=== PATIENT | female | born 1940 | race Caucasian/White ===

== ENCOUNTER 2022-06-25 10:30 | Outpatient (RCR) | payer MEDICARE, BC, SELFPAY ==
--- NOTE | 2022-05-26 09:57 | HP.PTEVAL_ITS ---
Patient's Visit Information MANGO GUERIN is a 81 year old F referred to Physical Therapy by Dr. Alexandra Eucdea MD with a diagnosis of TRAPEZIUS M. SPASM AND KYPHOSIS, AQUIRED. Date of Evaluation: 05/26/22 Physical Therapist: Haley Felix, PT, Cert MDT - Visit Plan Frequency: 2-3x /Week Duration: 4-6 Weeks Plan: GENTLE POSTURE CORRECTION/STRENGTHENING, INSTRUCTION IN APPROPRIATE BODY MECHANICS AND ACTIVITY MODIFICATIONS. GENTLE DULCE UE ROM, STRETCHING AND STRENGTHENING. US AND [facility] NEEDED. HEP INSTRUCTION. - Subjective Work/Leisure: RETIRED. Present symptoms: NECK PAIN. DULCE SHLD PAIN R>L. HEAVY FEELING IN THE NECK AND SHLD'S. PATIENT DENIES DULCE UE NUMBNESS AND TINGLING. Present since: 2005. Pain Scale: Worst - 6/10 Least - 1-210. Currently: - 08/08. Commenced as a result of: FALL ON ICE - HIT HEAD, NECK AND SHLD. Sy mptoms at onset: TINGLING FROM NECK UP TO TOP OF HEAD. Worse: TRYING TO HOLD HEAD UP, REACHING, LOOKING UP. ROLLING FROM LEFT TO RIGHT. RIGHT SDLY. Better: NOT LOOKING UP - WITH HEAD MORE DOWN. Disturbed sleep: YES. Previous history/Previous treatment: MASSAGE. H/O R FROZEN SHLD AND ROTATOR CUFF PROBLEM - TRIED PT AND IT MADE IT WORSE. NO NECK OR SHLD SURGERY. This episode: PT CONSULT. Dizziness: SOMETIMES - PATIENT RELATES IT TO HER HIGH BLOOD PRESSURE. ON MED'S. Tinnitis: ONCE IN A WHILE - NOT COMMON AND NOT NEW. Nausea: NO. Shortness of Breath: NO. Difficulty Swollowing: NO. Gait: H/O L ANKLE FX AND L TOES ARE NUMB. FOOT SWELLS AND MAKES WALKING UNCOMFORTABLE. NO AD'S. NO RECENT FALLS. Accidents: NO. Unexplained weight loss: NO. Imaging: NONE RECENT. PMH/Recent major surgery: HTN, HIGH CHOLESTEROL. H/O L ANKLE ORIF 2008. - Objective Sitting Posture/Standing Posture: INCREASED KYPHOSIS. FH. RSH'S. NO TORTICOLLIS. Active Correction of posture: NE. ONLY ABLE TO PARTIALLY CORRECT. PATIENT HAS MAJOR CERVICAL EXTENSION MVMT LOSS AND STRUGGLES TO KEEP EYES HORIZONTAL WITH THE GROUND. SHE REPORTS THAT THE MORE SHE TRIES TO HOLD HER HEAD UP THE MORE IT HURTS. Other Observations: INDEP GAIT AND TRANSFERS. Sensory deficit: DULCE UE LIGHT TOUCH SENSATION GROSSLY INTACT AND SYMMETRICAL. ROM deficit: DECREASED DULCE SHLD SHLD ROM: ELEVATION - RIGHT 130 DEG, LEFT 125 DEG. DULCE UE ELBOW, FOREARM, WRIST AND HAND ROM WFL. NO PAIN ELEVATING ARMS BUT RIGHT SHLE ACHES WITH PROLONGED REACHING LIKE TO DO HAIR. Motor deficit: RIGHT HAND DOMINANT WITH A R RIDES ATTENDANT 25 LBS, L 15 LBS. DULCE UE STRENGTH GROSSLY 4/5 WITH MMT'ING AND PATIENT DENIES PAIN WITH TESTING. Dural Signs: NEGATIVE DLUCE UE'S. Cervical Mvmt Loss: Flex: NIL. Pro: NIL. Ext: YASIR. Ret: YASIR. RSB: MOD. LSB: MOD. R Rot: MOD. L Rot: MOD. Postural strength: POOR. Palpation: NO ACUTE TENDERNESS WITH PALPATION OF NECK OR DULCE SHLD REGIONS BUT DULCE UT'S ARE VERY TIGHT. TREATMENT: NEUROMUSCULAR REEDUCATION - INTRO TO RETRAINING OF MVMT AND POSTURE FOR SITTING, LYING AND STANDING ACTIVITIES. - Balance/Special Test Scores Oswestry Neck Score: 11 - Goals Goal 1:: DECREASE C/O HEAD, NECK AND SHLD PAIN Goal Time Frame: 4-6 Weeks Goal 2:: IMPROVE LIFTING, REACHING, RADING, SLEEP, HOUSEWORK AND RECREATIONAL FUNCTION Goal Time Frame: 4-6 Weeks Goal 3:: INSTRUCT IN PROPHYLAXIS Goal Time Frame: 4-6 Weeks - Anticipated Interventions Patient/Client Instruction: Educate patient on: Condition, Plan of Care, Risk Factors For the Purpose of:: To improve self management Therapeutic Exercise to Include: Strength training, Body mechanics, Postural training, Flexibilty training, Neuromotor development, Scapular Strength/Stabilization For the Purpose of:: To decrease pain, To increase ROM, To improve muscle performance and motor function, To increase tolerance to activity/condition/position, To improve ability of physical actions for home/community/work/leisure Manual Therapy Techniques to Include: Soft tissue mobilization For the Purpose of:: To decrease pain, To improve nutrient delivery to tissue Cryotherapy (ice pack, ice massage): Yes Thermo therapy (hot pack): Yes Ultrasound (thermal/non thermal): Yes For the Purpose of:: To decrease pain, To improve nutrient delivery to tissue Thank you for the opportunity to evaluate your patient. For Medicare and Medicare HMO plans, please review the plan of care and approve it. It will need to be FAXED BACK to us at [phone] for Medicare purposes. For Medicare only, by signing this I certify the plan of care. Please let me know if there are questions or concerns regarding this plan of car e. Physician Signature: Date:
--- NOTE | 2022-06-25 11:01 | HP.PTDCSUM_ITS ---
It has been my pleasure to treat MANGO GUERIN referred by Dr. Alexandra Euceda MD, with the diagnosis of TRAPEZIUS M. SPASM AND KYPHOSIS, AQUIRED for a total of 10 visit(s). Discharge Date: Please see the following information for a summary of their discharge status. Subjective: LOOKING SIDE TO SIDE IS BETTER. LOOKING RIGHT AND LEFT DRIVING IS EASIER. STILL HAVING TROUBLE LOOKING UP AND PROLONGED LOOKING UP CAUSES A HEADACHE. PATIENT REPORTS THERAPY HAS HELPED A LOT AND SHE IS DOING HER HOME EX PROGRAM. USING HEAT ON NECK AT HOME HELPS PAIN TOO. PATIENT REPORTS SHE WOULD LIKE TO TRY TO CONTINUE THERAPY ON HER OWN AT THIS POINT AND WILL FOLLOW UP WITH HER PCP NEEDED. neck Pain Intensity (Out of 10): Unrated % Improvement: 75 Objective/Function: PATIENT WAS SEEN TODAY FOR RE-ASSESSMENT OF PROGRESS TOWARD THE SET PT GOALS AND THE NEED FOR FURTHER PHYSICAL THERAPY VS READINESS FOR DISCHARGE. UPON EXAM TODAY: ROM deficit: DULCE SHLD ELEVATION HAS IMPROVED - RIGHT 145 DEG, LEFT 145 DEG. DULCE UE ELBOW, FOREARM, WRIST AND HAND ROM WFL. Motor deficit: RIGHT HAND DOMINANT WITH A R HUMAN RESOURCES CONSULTANT 40 LBS, L 20 LBS. DULCE HUMAN RESOURCES CONSULTANT STRENGTH HAS IMRPOVED. DULCE UE STRENGTH GROSSLY 4/5 WITH MMT'ING AND PATIENT DENIES PAIN WITH TESTING. Dural Signs: NEGATIVE DULCE UE'S. Cervical Mvmt Loss: Flex: NIL. Pro: NIL. Ext: YASIR. Ret: YASIR. RSB: MOD. LSB: MOD. R Rot: MOD. L Rot: MOD. CERVICAL ROM IS UNCHANGED OVER-ALL BUT PATIENT REPORTS BEING ABLE TO TURN HER HEAD SIDE TO SIDE BETTER DURING ACTIVITIES LIKE DRIVING. Goal 1:: DECREASE C/O HEAD, NECK AND SHLD PAIN Goal Progress: Progressing Goal 2:: IMPROVE LIFTING, REACHING, RADING, SLEEP, HOUSEWORK AND RECREATIONAL FUNCTION Goal Progress: Progressing Goal 3:: INSTRUCT IN PROPHYLAXIS Goal Progress: Progressing Plan: D/C TO [facility] AND PHYSICIAN FOLLOW UP NEEDED. If there are questions or concerns regarding this patient's physical therapy, please feel free to call me at [phone]. Thank you for the referral of this patient. Sincerely, Haley Felix, PT, Cert MDT Balance/Gait/Functional tests - Balance/Special Test Scores Oswestry Neck Score: 6
== END 2022-06-25 12:53 | disposition home or self-care (01) ==
LOC: PT 10:30
PROVIDERS: PCP Internal Medicine; Referring Provider Internal Medicine; Visit Provider Internal Medicine
DX: M40.209 Unspecified kyphosis, site unspecified (principal); M62.838 Other muscle spasm
CPT/HCPCS: 97035; 97110; 97112; 97140; 97162; 97164; 97530

== ENCOUNTER 2022-10-01 12:00 | Outpatient (RCR) | payer MEDICARE, BC, SELFPAY ==
--- NOTE | 2022-09-01 14:57 | HP.PTEVAL_ITS ---
Patient's Visit Information MANGO GUERIN is a 81 year old F referred to Physical Therapy by Dr. Alexandra Euceda MD with a diagnosis of L NECK PAIN, TRAPEZIUS M. SPASM AND KYPHOSIS. Date of Evaluation: 09/01/22 Physical Therapist: Haley Felix, PT, Cert MDT - Visit Plan Frequency: 2x /Week Duration: 4-6 Weeks Plan: CERVICAL US AND STM. HEP REVIEW AND REINSTRUCTION NEEDED. GENTLE POSTURE CORRECTION/STRENGTHENING, INSTRUCTION IN APPROPRIATE BODY MECHANICS AND ACTIVITY MODIFICATIONS. GENTLE DULCE UE ROM, STRETCHING AND STRENGTHENING. FURTHER HEP INSTRUCTION NEEDED/APPROPRIATE. - Subjective Work/Leisure: RETIRED. Present symptoms: NECK PAIN. DULCE SHLD PAIN R>L. HEAVY FEELING IN THE NECK AND SHLD'S. PATIENT DENIES DULCE UE NUMBNESS AND TINGLING. Present since: 2005. Pain Scale: Worst - 6/10 Least - 0/10. Currently: 0/10. Commenced as a result of: FALL ON ICE - HIT HEAD, NECK AND SHLD. Symptoms at onset: TINGLING FROM NECK UP TO TOP OF HEAD. Worse: TRYING TO HOLD HEAD UP, REACHING, LOOKING UP. RIGHT SDLY. Better: NOT LOOKING UP - WITH HEAD MORE DOWN. PHYSICAL THERAPY. HEAT. Disturbed sleep: NO Previous history/Previous treatment: MASSAGE. H/O R FROZEN SHLD AND ROTATOR CUFF PROBLEM - TRIED PT AND IT MADE IT WORSE. NO NECK OR SHLD SURGERY. This episode: PT CONSULT. Dizziness: SOMETIMES - PATIENT RELATES IT TO HER HIGH BLOOD PRESSURE. ON MED'S. Tinnitis: ONCE IN A WHILE - NOT COMMON AND NOT NEW. Nausea: NO. Shortness of Breath: NO. Difficulty Swollowing: NO. Gait: H/O L ANKLE FX AND L TOES ARE NUMB. FOOT SWELLS AND MAKES WALKING UNCOMFORTABLE. NO AD'S. NO RECENT FALLS. Accidents: NO. Unexplained weight loss: NO. Imaging: RECENT NECK X-RAYS REVEALING ARTHRITIS AND DDD. PMH/Recent major surgery: HTN, HIGH CHOLESTEROL. H/O L ANKLE ORIF 2008. - Objective Sitting Posture/Standing Posture: INCREASED KYPHOSIS. FH. RSH'S. NO TORTICOLLIS. Active Correction of posture: NE. ONLY ABLE TO PARTIALLY CORRECT. PATIENT HAS MAJOR CERVICAL EXTENSION MVMT LOSS AND STRUGGLES TO KEEP EYES HORIZONTAL WITH THE GROUND. SHE REPORTS THAT THE MORE SHE TRIES TO HOLD HER HEAD UP THE MORE IT HURTS. Other Observations: INDEP GAIT AND TRANSFERS. Sensory deficit: DULCE UE LIGHT TOUCH SENSATION GROSSLY INTACT AND SYMMETRICAL. ROM deficit: DECREASED DULCE SHLD SHLD ROM: ELEVATION - RIGHT 142 DEG, LEFT 151 DEG. DULCE UE ELBOW, FOREARM, WRIST AND HAND ROM WFL. SOME RIGHT SHLD PAIN/ACHING WITH ROM/STRENGTH TESTING BUT MILD. Motor deficit: RIGHT HAND DOMINANT WITH A R SHREDDED FILLER MACHINE WRAPPER LAYER 28 LBS, L 18 LBS. DULCE UE STRENGTH GROSSLY 4/5 WITH MMT'ING AND PATIENT DENIES PAIN WITH TESTING. Dural Signs: NEGATIVE DULCE UE'S. Cervical Mvmt Loss: Flex: NIL. Pro: NIL. Ext: YASIR. Ret: YASIR. RSB: MOD. LSB: MOD. R Rot: MOD. L Rot: MOD. Postural strength: POOR. Palpation: NO ACUTE TENDERNESS WITH PALPATION OF NECK OR DULCE SHLD REGIONS BUT DULCE UT'S ARE VERY TIGHT. - Balance/Special Test Scores Oswestry Neck Score: 9 - Goals Goal 1:: DECREASE C/O HEAD, NECK AND SHLD PAIN Goal Time Frame: 4-6 Weeks Goal 2:: IMPROVE LIFTING, REACHING, READING, SLEEP, HOUSEWORK AND RECREATIONAL FUNCTION Goal Time Frame: 4-6 Weeks Goal 3:: INSTRUCT IN PROPHYLAXIS Goal Time Frame: 4-6 Weeks - Anticipated Interventions Patient/Client Instruction: Educate patient on: Condition, Plan of Care, Risk Factors For the Purpose of:: To improve self management Therapeutic Exercise to Include: Strength training, Body mechanics, Postural training, Flexibilty training, Neuromotor development, Scapular Strength/Stabilization For the Purpose of:: To decrease pain, To increase ROM, To improve muscle performance and motor function, To increase tolerance to activity/condit ion/position, To improve ability of physical actions for home/community/work/leisure Manual Therapy Techniques to Include: Soft tissue mobilization Comment: GENTLE For the Purpose of:: To decrease pain, To improve nutrient delivery to tissue Thermo therapy (hot pack): Yes Ultrasound (thermal/non thermal): Yes For the Purpose of:: To decrease pain, To improve nutrient delivery to tissue Thank you for the opportunity to evaluate your patient. For Medicare and Medicare HMO plans, please review the plan of care and approve it. It will need to be FAXED BACK to us at [phone] for Medicare purposes. For Medicare only, by signing this I certify the plan of care. Please let me know if there are questions or concerns regarding this plan of care. Physician Signature: __Date:
--- NOTE | 2022-10-01 12:29 | HP.PTDCSUM_ITS ---
It has been my pleasure to treat MANGO GUERIN referred by Dr. Alexandra Euceda MD, with the diagnosis of L NECK PAIN, TRAPEZIUS M. SPASM AND KYPHOSIS for a total of 10 visit(s). Discharge Date: Please see the following information for a summary of their discharge status. Subjective: PATIENT REPORTS HER PAIN IS A LOT BETTER AND THE PAIN IS MORE LOCALIZED NOW. STILL HAS CENTRAL NECK PAIN. SHE ALSO STATES SHE FEELS SHE CAN HOLD HER HEAD UP BETTER TOO BUT IT STILL GETS TIRED. CENTRAL NECK PAIN RANGES 0- 5/10 - HURTS AND GETS TIRED IF I TRY TO HOLD HEAD UP TOO LONG. DOING HOME EX PROGRAM AND FINDS THEM HELPS. WANTS TO TRY TO CONTINUE EX ON HER OWN AT THIS POINT. neck Pain Intensity (Out of 10): 3 % Improvement: 85 Objective/Function: PATIENT WAS SEEN TODAY FOR RE-ASSESSMENT OF PROGRESS TOWARD THE SET PT GOALS AND THE NEED FOR FURTHER PHYSICAL THERAPY VS READINESS FOR DISC HARGE. UPON EXAM TODAY PATIENT CONTINUES TO HAVE SIGNIFICANT CERVICAL MVMT LOSS BUT LESS C/O PAIN WITH MVMT. SHE IS INDEP WITH A HEP AND APPROPRIATE FOR DISCHARGE TO INDEP EX. PATIENT IS AGREEABLE. PATIENT MAY BENEFIT FROM MASSAGE THERAPY AND THIS WAS DISCUSSED WITH HER. SHE IS AGREEABLE AND PLANS TO PURSUE IT. Goal 1:: DECREASE C/O HEAD, NECK AND SHLD PAIN Goal Progress: Goal Met Goal 2:: IMPROVE LIFTING, REACHING, READING, SLEEP, HOUSEWORK AND RECREATIONAL FUNCTION Goal Progress: Goal Met Goal 3:: INSTRUCT IN PROPHYLAXIS Goal Progress: Goal Met Plan: D/C TO INDEP EX. PATIENT AGREEABLE. If there are questions or concerns regarding this patient's physical therapy, please feel free to call me at [phone]. Thank you for the referral of this patient. Sincerely, Haley Felix, PT, Cert MDT Balance/Gait/Functional tests - Balance/Special Test Scores Oswestry Neck Score: 7
== END 2022-10-01 12:50 | disposition home or self-care (01) ==
LOC: PT 12:00
PROVIDERS: PCP Internal Medicine; Referring Provider Internal Medicine; Visit Provider Internal Medicine
DX: M40.209 Unspecified kyphosis, site unspecified (principal); M45.2 Ankylosing spondylitis of cervical region; M62.838 Other muscle spasm
CPT/HCPCS: 97035; 97110; 97140; 97162; 97164; 97530